=== PATIENT | female | born 1990 ===

== ENCOUNTER 2019-04-14 10:27 | Emergency (ER) | payer OTHER ==
[~2019-04-14] VITALS: Ht 142.2 cm; Wt 41.7 kg
[2019-04-14] MEDS ORDERED: KETOROLAC TROME10 MG PO (15:44)
[2019-04-14] MEDS ORDERED: BACTRIM DS TAB1 EACH PO (15:44)
== END 2019-04-14 15:55 | disposition home or self-care (01) ==
LOC: ER 10:27
DX: R10.84 Generalized abdominal pain (principal); T50.995A Adverse effect of other drugs, medicaments and biological substances, initial encounter; N39.0 Urinary tract infection, site not specified